=== PATIENT | male | born 1965 | race Caucasian/White ===

== ENCOUNTER 2017-03-03 06:25 | Emergency (ER) | payer MEDICAID, MEDICARE, OTHER ==
[~2017-03-03] VITALS: Ht 182.9 cm; Wt 81.8 kg
[2017-03-03] MEDS ORDERED: DIPHENHYDRAMINE 50 MG CAPSULE ONE (06:53)
[2017-03-03] MEDS ORDERED: EPINEPHRINE 1 MG/ML, 1ML ONE (06:53)
[2017-03-03] MEDS ORDERED: FAMOTIDINE 20 MG TABLET ONE (06:53)
[2017-03-03] MEDS ORDERED: FAMOTIDINE 20 MG TABLET PO ONE (07:00)
[2017-03-03] MEDS ORDERED: EPINEPHRINE 1 MG/ML, 1ML SQ ONE (07:00)
[2017-03-03] MEDS ORDERED: DIPHENHYDRAMINE 25 MG CAPSULE PO ONE (07:00)
[2017-03-03] MEDS ORDERED: AMOX-291 PO (07:08)
[2017-03-03] MEDS ORDERED: ATEN25TA PO (07:08)
[2017-03-03] MEDS ORDERED: AMLO10TA2 PO (07:08)
[2017-03-03 08:24] VITALS: BP 118/67
== END 2017-03-03 08:26 | disposition home or self-care (01) ==
LOC: ED 08:20
DX: L27.0 Generalized skin eruption due to drugs and medicaments taken internally (principal); L50.0 Allergic urticaria; T36.0X5A Adverse effect of penicillins, initial encounter; I10 Essential (primary) hypertension; Y92.89 Other specified places as the place of occurrence of the external cause
CPT/HCPCS: 96372; 99283; J0171; J7512; Q0163